=== PATIENT | female | born 1960 | race Caucasian/White ===

== ENCOUNTER 2017-11-27 09:00 | Outpatient (CLI) | payer BC, MEDICARE ==
[~2017-11-27] VITALS: Ht 165.1 cm; Wt 95.3 kg
[~2017-11-27 09:00] MED LIST: ALPR1TAB2 PO; ATOR40TA PO; CYCL10TA9 PO; EZET10TA5 PO; FLUT9.9S NS; GLIP5TAB2 PO; HYDR-3820 PO; LISI-591 PO; METF500T8 PO; NABU750T PO; OXYC15TA73 PO; PROC-1 PO; RT-ALBUINH IH; SERT100T PO
[2017-11-28] MEDS ORDERED: PANT40TA2 PO (15:19)
== END 2017-11-27 09:39 ==
LOC: PREOP 09:00
PROVIDERS: ATTEND Surgery
DX: Z01.818 Encounter for other preprocedural examination (principal); Z86.010 Personal history of colon polyps; Z80.0 Family history of malignant neoplasm of digestive organs; R63.4 Abnormal weight loss; R10.13 Epigastric pain

== ENCOUNTER 2018-05-01 05:53 | Outpatient (CLI) | payer BC, MEDICARE ==
[~2018-05-01] VITALS: Ht 165.1 cm; Wt 95.3 kg
[~2018-05-01 05:53] MED LIST changes: +PANT40TA2 PO
[2018-05-01] MEDS ORDERED: PANT40TA3 PO (15:48)
== END 2018-05-01 15:50 ==
LOC: PREOP 05:53
PROVIDERS: ATTEND Surgery
DX: Z01.818 Encounter for other preprocedural examination (principal); Z86.010 Personal history of colon polyps

== ENCOUNTER 2018-05-08 09:02 | Day surgery (SDC) | payer BC, MEDICARE ==
[~2018-05-08] VITALS: Ht 165.1 cm; Wt 95.3 kg
[~2018-05-08 09:02] MED LIST changes: +PANT40TA3 PO
[2018-05-08] MEDS ORDERED: LACTATED RINGERS 1,000 ML IV STA (09:03)
[2018-05-08] MEDS ORDERED: LACTATED RINGERS 1,000 ML IV ONE (09:12)
[2018-05-08] MEDS ORDERED: proPOfol 200 MG/20 ML (DIPRIVAN) VIAL IV ONE ×2 (09:31→10:14)
[2018-05-08] MEDS ORDERED: MIDAZOLAM 2 MG/2 ML (VERSED) VIAL ONE (09:32)
--- NOTE | 2018-05-08 09:39 | Progress Note-Pre Operative ---
Pre-Operative Progress Note H&P Reviewed The H&P was reviewed, patient examined and no changes noted. Date Seen by Provider: May 08, 2018 Time Seen by Provider: 09:39 Date H&P Reviewed: May 08, 2018 Time H&P Reviewed: 09:39 Pre-Operative Diagnosis: history of polyps NIKOLE ERICKSON DO May 08, 2018 09:39
[2018-05-08] MEDS ORDERED: ceFAZolin 1,000 MG (ANCEF) VIAL ONE (09:49)
[2018-05-08] MEDS ORDERED: ceFAZolin 2 GM IV Premixed 50 ML IV ONE (10:00)
--- NOTE | 2018-05-08 10:50 | Discharge Inst-Simple/Standard ---
Discharge Inst-Standard Patient Instructions/Follow Up Plan of Care/Instructions/FU: 2 weeks Kelli Activity as Tolerated: Yes Discharge Diet: Regular Diet (high fiber) NIKOLE ERICKSON DO May 08, 2018 10:50
--- NOTE | 2018-05-08 10:52 | Progress Note-Post Operative ---
Post-Operative Progess Note Surgeon (s)/Synchronizer (s) Surgeon NIKOLE ERICKSON DO Synchronizer: na Pre-Operative Diagnosis history of polyps Post-Operative Diagnosis colon polyps Procedure & Operative Findings Date of Procedure 05/08/18 Procedure Performed/Findings colonoscopy with hot bx polypectomy x 4 and fulguration of polyps x 6 Anesthesia Type per mda Estimated Blood Loss Estimated blood loss (mL): none Specimens/Packing Specimens Removed rectal polyps NIKOLE ERICKSON DO May 08, 2018 10:52
[2018-05-08 11:00] VITALS: BP 111/66
[2018-05-08 11:30] VITALS: BP 113/55
[2018-05-08 11:36] VITALS: BP 113/55
--- NOTE | 2018-05-08 15:59 | Anesthesia-General Post-Op ---
MAC Patient Condition Mental Status/LOC: Same as Preop Cardiovascular: Satisfactory Nausea/Vomiting: Absent Respiratory: Satisfactory Pain: Controlled Complications: Absent Post Op Complications Complications None Follow Up Care/Instructions Patient Instructions None needed. Anesthesiology Discharge Order Discharge Order Patient was seen after the procedure and she was doing well, no complaints, stable vital signs, no apparent adverse anesthesia problems. NEGAR WOODRUFF DO May 08, 2018 15:59
--- NOTE | 2018-05-08 20:31 | OPERATIVE REPORT ---
DATE OF SERVICE: 05/08/2018 PREOPERATIVE DIAGNOSIS: History of polyps. POSTOPERATIVE DIAGNOSIS: Colon polyps. PROCEDURE PERFORMED: Colonoscopy with hot biopsy polypectomy x4 and fulguration of polyps x6. SURGEON: Nikole Pereira DO ANESTHESIA: Per MDA. ESTIMATED BLOOD LOSS: None. COMPLICATIONS: None. INDICATIONS: The patient is a 57-year-old female with recent history of multiple polyps. She understands risks and benefits of procedure and wished to proceed with procedure. Consent was signed in the chart. DESCRIPTION OF PROCEDURE: The patient was taken to the endoscopy suite, placed in left lateral recumbent position. Timeout was performed. Digital rectal exam was performed. There were no palpable polyps, masses or ulcerations. The scope was inserted in the rectum and advanced all the way to the cecum with minimal difficulty. Lots of liquid stool present. Copious amounts of irrigation and suction performed to get adequate visualization. There were no polyps, masses, ulcerations within the cecum, ascending, transverse, descending and sigmoid colon. Once in the rectum, multiple polyps present. Four of them hot biopsy polypectomy was performed and six, the small ones were fulgurated. Scope was retroflexed noting no other pathology. Scope was returned to its normal position, slowly withdrawn until completely removed. The patient tolerated procedure well without any complications. She was taken to recovery room in stable condition. RECOMMENDATIONS: The patient would recommend repeat colonoscopy in one year due to the number of polyps. We will have her follow up in 2 weeks to discuss pathology and see how she is doing at that time. Job ID: [id number] DocumentID: [id number] Dictated Date: 05/08/2018 10:54:33 Air Conditioning Sheet Metal Installer Date: 05/08/2018 20:31:03 Dictated By: NIKOLE PEREIRA DO
== END 2018-05-08 11:45 | disposition home or self-care (01) ==
LOC: ENDO 09:02
PROVIDERS: ATTEND Surgery
DX: Z09 Encounter for follow-up examination after completed treatment for conditions other than malignant neoplasm (principal); D12.8 Benign neoplasm of rectum; Z86.010 Personal history of colon polyps; J45.909 Unspecified asthma, uncomplicated; Z87.891 Personal history of nicotine dependence

== ENCOUNTER 2019-05-07 05:40 | Outpatient (CLI) | payer BC, MEDICARE ==
[~2019-05-07] VITALS: Ht 165.1 cm; Wt 88.5 kg
== END 2019-05-07 15:27 | disposition home or self-care (01) ==
LOC: PREOP 05:40
PROVIDERS: ATTEND Surgery
DX: Z01.818 Encounter for other preprocedural examination (principal)

== ENCOUNTER 2019-05-14 09:07 | Day surgery (SDC) | payer MEDICARE ==
[~2019-05-14] VITALS: Ht 165.1 cm; Wt 88.5 kg
--- OUTSIDE RECORDS SUMMARY | 2019-05-14 09:10 | XMS REPORT | Continuity of Care Document ---
Author Organization Unknown Address Unknown Allergies There is no data. Medications There is no data. Problems There is no data. Procedures There is no data. Results There is no data. Encounters ACCT No. Visit Date/Time Discharge Status Pt. Type Provider Facility Loc./Unit Complaint [id number] 05/09/2019 11:00:00 05/09/2019 23:59:59 CLS Outpatient [facility]
[2019-05-14] MEDS ORDERED: LACTATED RINGERS 1,000 ML IV STA (09:12)
[2019-05-14] MEDS ORDERED: HURRICAINE EXT TUBE (BENZOCAINE) XX PRN (09:15)
[2019-05-14] MEDS ORDERED: MIDAZOLAM 2 MG/2 ML (VERSED) VIAL ONE ×2 (09:29→10:07)
[2019-05-14] MEDS ORDERED: PROPOFOL INJECTION 50 ML IV ONE (09:29)
[2019-05-14 09:30] VITALS: BP 134/77
--- NOTE | 2019-05-14 10:08 | Progress Note-Pre Operative ---
Pre-Operative Progress Note H&P Reviewed The H&P was reviewed, patient examined and no changes noted. Date Seen by Provider: May 14, 2019 Time Seen by Provider: 10: Date H&P Reviewed: May 14, 2019 Time H&P Reviewed: : Pre-Operative Diagnosis: epigastric abd pain, gerd, hx polyps NIKOLE ERICKSON DO May 14, 2019 10:07
[2019-05-14] MEDS ORDERED: proPOfol 200 MG/20 ML (DIPRIVAN) VIAL IV ONE ×2 (10:20→11:01)
[2019-05-14] MEDS ORDERED: FAMO-119 PO (11:20)
[2019-05-14 11:32] VITALS: BP 136/79
--- NOTE | 2019-05-14 11:32 | Progress Note-Post Operative ---
Post-Operative Progess Note Surgeon (s)/Banbury Mixer Operator (s) Surgeon NIKOLE ERICKSON DO Banbury Mixer Operator: na Pre-Operative Diagnosis epigastric abd pain, gerd, hx polyps Post-Operative Diagnosis hiatal hernia, gastritis c erosions, colon polyps Procedure & Operative Findings Date of Procedure 05/14/19 Procedure Performed/Findings egd c biopsies, colonoscopy with hot bx polypectomy x 6 and fulguration x 15 Anesthesia Type per [facility] Estimated Blood Loss Estimated blood loss (mL): none Specimens/Packing Specimens Removed antrum, ge, colon polyps NIKOLE ERICKSON DO May 14, 2019 11:32
[2019-05-14] MEDS ORDERED: PANT40TA2 PO (11:33)
[2019-05-14] MEDS ORDERED: SUCR1TAB36 PO (11:33)
--- NOTE | 2019-05-14 11:34 | Discharge Inst-Simple/Standard ---
Discharge Inst-Standard Discharge Medications New, Converted or Re-Newed RX: Transmitted to Pharmacy Patient Instructions/Follow Up Plan of Care/Instructions/FU: 3 weeks Kelli Activity as Tolerated: Yes Discharge Diet: Regular Diet NIKOLE ERICKSON DO May 14, 2019 11:34
--- NOTE | 2019-05-14 11:55 | OPERATIVE REPORT ---
DATE OF SERVICE: 05/14/2019 PREOPERATIVE DIAGNOSES: History of colon polyps, epigastric abdominal pain, gastroesophageal reflux disease. POSTOPERATIVE DIAGNOSES: Hiatal hernia, gastritis with erosions, colon polyps. PROCEDURE: EGD with biopsies, colonoscopy with hot biopsy polypectomy x6 and fulguration x15. SURGEON: Nikole Pereira DO ANESTHESIA: Per MDA. ESTIMATED BLOOD LOSS: None. COMPLICATIONS: None. INDICATIONS: The patient is a 58-year-old female with epigastric abdominal pain, reflux and history of colon polyps. She understands risks and benefits of procedure and wished to proceed with procedure. Consent was signed and on the chart. DESCRIPTION OF PROCEDURE: The patient was taken to the endoscopy suite, placed in left lateral recumbent position. Timeout was performed. Scope was inserted through the mouth, down the esophagus, stomach and into the duodenum without difficulty. There were no polyps, mass or ulcerations within the duodenum. Some slight erythematous changes present. Scope was then slowly retracted back into the stomach, which was further insufflated. There was gastritis appearance with some erosions present. Biopsy of the antrum was obtained. No polyps, masses or large ulcerations. Scope was retroflexed noting a hiatal hernia. No other pathology noted. Scope was returned to its normal position, slowly withdrawn to the distal esophagus. There are no polyps, masses or ulcerations. Biopsy of the GE junction was obtained. Scope was then slowly retracted back to completely remove, noting no other pathology. Digital rectal exam was performed. There were no palpable polyps, masses or ulcerations. The scope was inserted in the rectum and advanced all the way to the cecum with minimal difficulty. Prep was adequate with irrigation and suction. The scope was then slowly retracted back. There were no polyps, masses or ulcerations within the cecum, ascending, transverse and descending colon. In sigmoid colon, there were multiple polyps throughout this area. Hot biopsy polypectomy x6 was performed. , there were some very small punctate polyps forming which were fulgurated. They were 15. Scope was continued to be slowly retracted back into the rectum, where his NG retroflexed, but was a little bit narrow and therefore multiple insertions and retractions were made, noting no other pathology. The patient tolerated the procedure well without any complications. She was taken to recovery room in stable condition. RECOMMENDATIONS: The patient will be stopped. Her started on Protonix and Carafate and see how she is doing and follow up on pathology in about 3 weeks. The patient will follow up on pathology of the polyps and likely benefit from flexible sigmoidoscopy for reevaluation of this area in 6 months to a year. Job ID: [id number] DocumentID: [id number] Dictated Date: 05/14/2019 11:38:55 Compress Trucker Date: 05/14/2019 11:54:11 Dictated By: NIKOLE PEREIRA DO
[2019-05-14 12:08] VITALS: BP 132/76
[2019-05-14 12:28] VITALS: BP 132/76
--- NOTE | 2019-05-14 14:39 | Anesthesia-General Post-Op ---
MAC Patient Condition Mental Status/LOC: Same as Preop Cardiovascular: Satisfactory Nausea/Vomiting: Absent Respiratory: Satisfactory Pain: Controlled Complications: Absent Post Op Complications Complications None Follow Up Care/Instructions Patient Instructions None needed. Anesthesiology Discharge Order Discharge Order Patient is doing well, no complaints, stable vital signs, no apparent adverse anesthesia problems. No complications reported per nursing. GRAZYNA SOFIA CRNA May 14, 2019 14:39
== END 2019-05-14 12:28 | disposition home or self-care (01) ==
LOC: ENDO 09:07
PROVIDERS: ATTEND Surgery
DX: Z09 Encounter for follow-up examination after completed treatment for conditions other than malignant neoplasm (principal); D12.3 Benign neoplasm of transverse colon; K63.5 Polyp of colon; K29.70 Gastritis, unspecified, without bleeding; K25.9 Gastric ulcer, unspecified as acute or chronic, without hemorrhage or perforation; K21.9 Gastro-esophageal reflux disease without esophagitis; K44.9 Diaphragmatic hernia without obstruction or gangrene; J45.909 Unspecified asthma, uncomplicated; E11.9 Type 2 diabetes mellitus without complications; F32.9 Major depressive disorder, single episode, unspecified; F41.9 Anxiety disorder, unspecified; Z86.010 Personal history of colon polyps; Z87.891 Personal history of nicotine dependence; Z79.84 Long term (current) use of oral hypoglycemic drugs; Z79.899 Other long term (current) drug therapy

== ENCOUNTER → 2019-06-28 | Outpatient (CLI) | payer MEDICARE ==
[~2019-06-28] MED LIST changes: +FAMO-119 PO; +SUCR1TAB36 PO
--- NOTE | 2019-07-02 17:41 | Diagnostic Imaging Report ---
INDICATION: Routine screening. COMPARISON: Comparison is made with prior mammogram from 01/23/2018. TECHNIQUE: 2-D and 3-D bilateral screening mammography was performed. The current study was also evaluated with a Computer Aided Detection (CAD) system. 3-D tomosynthesis was also performed and reviewed. FINDINGS: Scattered fibroglandular densities are identified bilaterally. There are benign calcifications bilaterally. Benign-appearing nodular densities are also seen bilaterally and appear stable. No spiculated mass or malignant appearing microcalcifications are seen. The axillae are unremarkable. IMPRESSION: No mammographic features suspicious for malignancy are identified. ACR BI-RADS Category 2: Benign findings. Result letter will be mailed to the patient. Note: At least 10% of breast cancer is not imaged by mammography. Dictated by: Dictated on workstation # [id number]
== END ==
LOC: RAD 10:00
PROVIDERS: ATTEND Nurse Practitioner
DX: Z12.31 Encounter for screening mammogram for malignant neoplasm of breast (principal)
CPT/HCPCS: 77067

== ENCOUNTER → 2020-04-23 | Outpatient (CLI) | payer MEDICARE ==
[~2020-04-23] MED LIST changes: +ACHYD1T PO; +EZET10TA17 PO; -EZET10TA5 PO; -HYDR-3820 PO; +METF-865 PO; -METF500T8 PO
--- NOTE | 2020-04-23 18:21 | Diagnostic Imaging Report ---
INDICATION: Questionable fracture COMPARISON: None available TECHNIQUE: 3 radiographs of the right elbow dated 04/23/2020. FINDINGS: Recent fracturing through the radial neck is identified. Fracture plane is predominantly transversely oriented. There is suggestion of minimal periosteal reaction. Alignment is near anatomic. No additional fracture or dislocation. Small elbow joint effusion is present. No suspicious radiopaque foreign body. IMPRESSION: Essentially nondisplaced radial neck fracture. This is felt to be subacute in nature given suggestion of mild periosteal reaction. Tiny elbow joint effusion. Dictated by: Dictated on workstation # [id number]
== END ==
LOC: RAD 15:02
PROVIDERS: ATTEND Nurse Practitioner Family
DX: S52.134A Nondisplaced fracture of neck of right radius, initial encounter for closed fracture (principal)
CPT/HCPCS: 73080

== ENCOUNTER 2020-05-07 05:34 | Outpatient (RCR) | payer MEDICARE ==
[~2020-05-07] VITALS: Ht 170.2 cm; Wt 100.0 kg
[~2020-05-07 05:34] MED LIST changes: +ASPI-586 PO; +DULO60CA6 PO; +FAMO20TA3 PO; +HYDR-4342 PO; +LISI-552 PO; +OXYC10TA7 PO; +TOPI100T11 PO
== END 2020-05-07 14:45 | disposition home or self-care (01) ==
LOC: PREOP 05:34
PROVIDERS: ATTEND Surgery
DX: Z01.818 Encounter for other preprocedural examination (principal); Z11.59 Encounter for screening for other viral diseases
CPT/HCPCS: 87635

== ENCOUNTER 2020-05-12 07:35 | Day surgery (SDC) | payer MEDICARE ==
[~2020-05-12] VITALS: Ht 170.2 cm; Wt 100.0 kg
[2020-05-12] MEDS ORDERED: LACTATED RINGERS 1,000 ML IV ONE (07:41)
[2020-05-12] MEDS ORDERED: LACTATED RINGERS 1,000 ML IV STA (07:46)
[2020-05-12] MEDS ORDERED: HURRICAINE EXT TUBE (BENZOCAINE) XX PRN (08:00)
[2020-05-12 08:08] VITALS: BP 113/62
--- NOTE | 2020-05-12 08:17 | Progress Note-Pre Operative ---
Pre-Operative Progress Note H&P Reviewed The H&P was reviewed, patient examined and no changes noted. Date Seen by Provider: May 12, 2020 Time Seen by Provider: 08:17 Date H&P Reviewed: May 12, 2020 Time H&P Reviewed: 08:17 Pre-Operative Diagnosis: gerd, hx polyps NIKOLE ERICKSON DO May 12, 2020 08:17
[2020-05-12] MEDS ORDERED: MIDAZOLAM 2 MG/2 ML (VERSED) VIAL ONE (08:45)
[2020-05-12] MEDS ORDERED: PROPOFOL INJECTION 50 ML IV ONE ×2 (08:45→09:01)
[2020-05-12 09:50] VITALS: BP 95/50
[2020-05-12 09:55] VITALS: BP 95/52
[2020-05-12 10:00] VITALS: BP 101/54
[2020-05-12 10:05] VITALS: BP 101/54
--- NOTE | 2020-05-12 10:05 | Progress Note-Post Operative ---
Post-Operative Progess Note Surgeon (s)/Elementary School Reading Teacher (s) Surgeon NIKOLE ERICKSON DO Elementary School Reading Teacher: na Pre-Operative Diagnosis gerd, hx polyps Post-Operative Diagnosis hiatal hernia, colon polyps Procedure & Operative Findings Date of Procedure 05/12/20 Procedure Performed/Findings egd c biopsies antrum and ge, colonoscopy with hot biopsy polyps x 9 Anesthesia Type per recycling tech Estimated Blood Loss Estimated blood loss (mL): none Specimens/Packing Specimens Removed antrum, ge, sigmoid and rectal polyps NIKOLE ERICKSON DO May 12, 2020 10:05
--- NOTE | 2020-05-12 10:07 | Discharge Inst-Simple/Standard ---
Discharge Inst-Standard Patient Instructions/Follow Up Plan of Care/Instructions/FU: 2 weeks tank Activity as Tolerated: Yes Discharge Diet: Regular Diet NIKOLE ERICKSON DO May 12, 2020 10:07
[2020-05-12 10:31] VITALS: BP 103/58
--- NOTE | 2020-05-12 12:22 | OPERATIVE REPORT ---
DATE OF SERVICE: 05/12/2020 PREOPERATIVE DIAGNOSIS: History of polyps. POSTOPERATIVE DIAGNOSES: Hiatal hernia, colon polyps. PROCEDURE: Esophagogastroduodenoscopy with biopsy of the antrum and GE junction, colonoscopy with hot biopsy polypectomy x9. SURGEON: Nikole Pereira DO ANESTHESIA: Per WET WASHER MACHINE. ESTIMATED BLOOD LOSS: None. COMPLICATIONS: None. INDICATIONS: The patient is a 59-year-old female with reflux symptoms and history of polyps. She understands risks and benefits of procedure and wished to proceed with procedure. Consent was signed in the chart. DESCRIPTION OF PROCEDURE: The patient was taken to the endoscopy suite, placed in left lateral recumbent position. Timeout was performed. Scope was inserted in mouth, down the esophagus, stomach and into the duodenum without difficulty. There were no polyps, masses or ulcerations within the duodenum. Scope was then slowly retracted back into the stomach where it was further insufflated. No polyps, masses or ulcerations. Biopsy of the antrum was obtained. Scope was retroflexed noting a hiatal hernia, no other pathology noted. Scope was returned to its normal position, slowly withdrawn to the distal esophagus. Multiple biopsies of the GE junction was obtained. No polyps, masses or ulcerations. Some slight erythema present. Scope was then slowly retracted back until completely removed. Digital rectal exam was performed. There were no palpable polyps, masses or ulcerations. Scope was inserted in the rectum, advanced all the way to cecum with minimal difficulty. Prep was adequate. Scope was then slowly retracted back. There were no polyps, mass, ulceration of the cecum, ascending, transverse and descending colon; and in sigmoid colon, there were three polyps present, which hot biopsy polypectomies were performed. Scope was then continuously retracted back into the rectum, where 6 more polyps were present, which hot biopsy polypectomies performed. Scope was retroflexed noting no other pathology. Scope was returned to its normal position, slowly withdrawn until completely removed. The patient tolerated procedure well without any complications. She was taken to recovery room in stable condition. RECOMMENDATIONS: The patient will need a flexible sigmoidoscopy in 3 to 6 months to reevaluate. We will continue on current medications. We will follow up in the office to discuss pathology results in 2 weeks and see how her symptoms are doing at that time. Job ID: [id number] DocumentID: [id number] Dictated Date: 05/12/2020 10:10:50 Analytics Consultant Date: 05/12/2020 12:22:15 Dictated By: NIKOLE PEREIRA DO
--- NOTE | 2020-05-15 12:36 | Anesthesia-General Post-Op ---
MAC Significant Intra-Op Events Notes addendum 05-12-20 @1000 Patient Condition Mental Status/LOC: Same as Preop Cardiovascular: Satisfactory Nausea/Vomiting: Absent Respiratory: Satisfactory Pain: Controlled Complications: Absent Post Op Complications Complications None Follow Up Care/Instructions Patient Instructions None needed. Anesthesiology Discharge Order Discharge Order Patient is doing well, no complaints, stable vital signs, no apparent adverse anesthesia problems. No complications reported per nursing. GRAZYNA SOFIA CRNA May 15, 2020 12:36
== END 2020-05-12 10:40 | disposition home or self-care (01) ==
LOC: ENDO 07:35
PROVIDERS: ATTEND Surgery
DX: Z09 Encounter for follow-up examination after completed treatment for conditions other than malignant neoplasm (principal); K63.5 Polyp of colon; K62.1 Rectal polyp; K29.50 Unspecified chronic gastritis without bleeding; K44.9 Diaphragmatic hernia without obstruction or gangrene; K21.0 Gastro-esophageal reflux disease with esophagitis; I10 Essential (primary) hypertension; E11.9 Type 2 diabetes mellitus without complications; F41.9 Anxiety disorder, unspecified; E78.2 Mixed hyperlipidemia; J45.909 Unspecified asthma, uncomplicated; M06.9 Rheumatoid arthritis, unspecified; M19.90 Unspecified osteoarthritis, unspecified site; Z79.82 Long term (current) use of aspirin; Z88.1 Allergy status to other antibiotic agents; Z79.899 Other long term (current) drug therapy; Z87.891 Personal history of nicotine dependence; Z96.659 Presence of unspecified artificial knee joint
CPT/HCPCS: 88305

== ENCOUNTER → 2020-09-21 | Outpatient (CLI) | payer MEDICARE ==
[~2020-09-21] MED LIST changes: +HYDR-3817 PO; -HYDR-4342 PO; +NABU-90 PO; -NABU750T PO; -PANT40TA3 PO; +PANT40TA52 PO
== END ==
LOC: LABNPT 05:40
PROVIDERS: ATTEND Orthopaedic Surgery
DX: Z01.812 Encounter for preprocedural laboratory examination (principal); Z20.828 Contact with and (suspected) exposure to other viral communicable diseases
CPT/HCPCS: 87635

== ENCOUNTER 2020-12-18 05:37 | Outpatient (RCR) | payer MEDICARE ==
[~2020-12-18] VITALS: Ht 162.6 cm; Wt 113.6 kg
[~2020-12-18 05:37] MED LIST changes: +ATOR20TA66 PO; +BACL10TA PO; +GABA-486 PO
[2020-12-22] MEDS ORDERED: SUCR1TAB36 PO (15:19)
== END 2020-12-21 12:28 | disposition home or self-care (01) ==
LOC: PREOP 05:37
PROVIDERS: ATTEND Surgery
DX: Z01.812 Encounter for preprocedural laboratory examination (principal); K92.1 Melena; R10.13 Epigastric pain; Z20.822 Contact with and (suspected) exposure to COVID-19
CPT/HCPCS: 87635

== ENCOUNTER 2020-12-22 12:59 | Day surgery (SDC) | payer MEDICARE ==
[~2020-12-22] VITALS: Ht 162.6 cm; Wt 113.6 kg
[2020-12-22] MEDS ORDERED: LACTATED RINGERS 1,000 ML IV STA (13:02)
[2020-12-22] MEDS ORDERED: LACTATED RINGERS 1,000 ML IV ONE (13:04)
[2020-12-22] MEDS ORDERED: MIDAZOLAM 2 MG/2 ML (VERSED) VIAL ONE (13:12)
[2020-12-22] MEDS ORDERED: PROPOFOL INJECTION 50 ML IV ONE ×2 (13:12→14:50)
[2020-12-22] MEDS ORDERED: HURRICAINE EXT TUBE (BENZOCAINE) XX PRN (13:15)
[2020-12-22 13:21] VITALS: BP 141/72
[2020-12-22] MEDS ORDERED: HURRICAINE EXT TUBE (BENZOCAINE) ONE (14:27)
--- NOTE | 2020-12-22 14:35 | Progress Note-Pre Operative ---
Pre-Operative Progress Note H&P Reviewed The H&P was reviewed, patient examined and no changes noted. Date Seen by Provider: Dec 22, 2020 Time Seen by Provider: 14:35 Date H&P Reviewed: Dec 22, 2020 Time H&P Reviewed: 14:35 Pre-Operative Diagnosis: blood in stool, epigastric abd pain, hx polyps, hx ulcers NIKOLE ERICKSON DO Dec 22, 2020 14:35
[2020-12-22 15:15] VITALS: BP 126/79
--- NOTE | 2020-12-22 15:18 | Progress Note-Post Operative ---
Post-Operative Progess Note Surgeon (s)/Oil Fire Specialist (s) Surgeon NIKOLE ERICKSON DO Oil Fire Specialist: Na Pre-Operative Diagnosis blood in stool, epigastric abd pain, hx polyps, hx ulcers Post-Operative Diagnosis hiatal hernia, gastritis, colon polyps, diverticulosis Procedure & Operative Findings Date of Procedure 12/22/20 Procedure Performed/Findings egd c biopsies, colonoscopy c hot bx polypectomy x 4 Anesthesia Type per home care music therapist Estimated Blood Loss Estimated blood loss (mL): none Specimens/Packing Specimens Removed antrum, body ge, colon polyps NIKOLE ERICKSON DO Dec 22, 2020 15:18
[2020-12-22] MEDS ORDERED: SUCR1TAB36 PO (15:19)
[2020-12-22 15:20] VITALS: BP 130/69
--- NOTE | 2020-12-22 15:20 | Discharge Inst-Simple/Standard ---
Discharge Inst-Standard Discharge Medications New, Converted or Re-Newed RX: Transmitted to Pharmacy Patient Instructions/Follow Up Plan of Care/Instructions/FU: 3 weeks Kelli Activity as Tolerated: Yes Discharge Diet: Regular Diet NIKOLE ERICKSON DO Dec 22, 2020 15:20
[2020-12-22 15:25] VITALS: BP 121/60
[2020-12-22 15:56] VITALS: BP 121/60
--- NOTE | 2020-12-22 16:08 | Anesthesia-General Post-Op ---
MAC Patient Condition Mental Status/LOC: Same as Preop Cardiovascular: Satisfactory Nausea/Vomiting: Absent Respiratory: Satisfactory Pain: Controlled Complications: Absent Post Op Complications Complications None Follow Up Care/Instructions Patient Instructions None needed. Anesthesiology Discharge Order Discharge Order Patient is doing well, no complaints, stable vital signs, no apparent adverse anesthesia problems. No complications reported per nursing. CASSANDRA SHARP CRNA Dec 22, 2020 16:08
--- NOTE | 2020-12-22 20:16 | OPERATIVE REPORT ---
DATE OF SERVICE: 12/22/2020 PREOPERATIVE DIAGNOSES: Gastroesophageal reflux disease, blood in stool, epigastric abdominal pain, history of polyps, history of ulcers. POSTOPERATIVE DIAGNOSES: Hiatal hernia, gastritis, colon polyps, diverticulosis. PROCEDURE: EGD with biopsies, colonoscopy with hot biopsy polypectomy x4. SURGEON: Nikole Pereira DO ANESTHESIA: Per MARKET RESEARCH INTERVIEWER. ESTIMATED BLOOD LOSS: None. COMPLICATIONS: None. SPECIMENS: Antrum, body, GE junction and colon polyps. INDICATIONS: The patient is a 60-year-old female with some slight blood in stools, epigastric abdominal pain, history of polyps and history of ulcers. She understands risks and benefits of procedure and wished to proceed with procedure. Consent was signed in the chart. DESCRIPTION OF PROCEDURE: The patient was taken to the endoscopy suite, placed in left lateral recumbent position. Timeout was performed. Scope was inserted in mouth, down the esophagus, stomach and into the duodenum without difficulty. No polyps, masses or ulcerations within the duodenum. Scope was slowly retracted back into the stomach where it was further insufflated. Slight appearance of some gastritis. Biopsy of the antrum and body were obtained. Scope was retroflexed noting hiatal hernia. Scope was returned to its normal position, slowly withdrawn to distal esophagus. Biopsy of the GE junction was obtained. Some reflux changes. Scope was slowly retracted back until completely removed. Digital rectal exam was performed. There were no palpable polyps, masses or ulcerations. Scope was inserted in the rectum and advanced all the way to cecum with minimal difficulty. No polyps, masses or ulcerations. Prep was adequate. There were no polyps, masses or ulcerations within the cecum, ascending, transverse and descending colon. In sigmoid colon, some slight diverticulosis present. In the proximal portion of the sigmoid, a small polyp was present, which hot biopsy polypectomy was performed. Scope was then continuously slowly retracted back and in the distal portion of the sigmoid three polyps were present, which hot biopsy polypectomy was performed. Scope was then slowly retracted back into the rectum where it was also inserted and retracted multiple times, noting no other pathology. Scope was slowly retracted until completely removed. The patient tolerated procedure well without any complications, taken to recovery room in stable condition. RECOMMENDATIONS: We will add Carafate 1 gram four times a day. We will follow up in the office in about 3 weeks, we would consider repeat colonoscopy in 3 to 5 years. Job ID: [id number] DocumentID: [id number] Dictated Date: 12/22/2020 15:54:41 Alterations Tailor Date: 12/22/2020 20:14:26 Dictated By: NIKOLE PEREIRA DO
== END 2020-12-22 16:00 | disposition home or self-care (01) ==
LOC: ENDO 12:59
PROVIDERS: ATTEND Surgery
DX: K21.00 Gastro-esophageal reflux disease with esophagitis, without bleeding (principal); K63.5 Polyp of colon; K44.9 Diaphragmatic hernia without obstruction or gangrene; K57.30 Diverticulosis of large intestine without perforation or abscess without bleeding; K29.70 Gastritis, unspecified, without bleeding; F41.9 Anxiety disorder, unspecified; F32.9 Major depressive disorder, single episode, unspecified; I10 Essential (primary) hypertension; J45.909 Unspecified asthma, uncomplicated; E78.2 Mixed hyperlipidemia; E11.9 Type 2 diabetes mellitus without complications; E66.01 Morbid (severe) obesity due to excess calories; Z68.41 Body mass index [BMI] 40.0-44.9, adult; Z79.82 Long term (current) use of aspirin; Z79.899 Other long term (current) drug therapy; Z88.0 Allergy status to penicillin; Z88.1 Allergy status to other antibiotic agents; Z88.8 Allergy status to other drugs, medicaments and biological substances; Z86.010 Personal history of colon polyps; Z87.891 Personal history of nicotine dependence; Z80.3 Family history of malignant neoplasm of breast
CPT/HCPCS: 88305